=== PATIENT | female | born 1970 | race Two or more races ===

== ENCOUNTER 2016-08-10 10:39 | Emergency (ER) | payer MEDICAID ==
[2016-08-10 10:58] VITALS: RESP 18; TEMP 98
[2016-08-10] MEDS ORDERED: METOCLOPRAMIDE 10 MG/2 ML VIAL IVP ONE (11:04)
[2016-08-10] MEDS ORDERED: HYDROmorphONE/DILAUDID 1 MG/ML SYR IVP ONE (11:04)
[2016-08-10] MEDS ORDERED: KETOROLAC 30 MG/1 ML SDV IVP ONE (11:04)
[2016-08-10] MEDS ORDERED: NS 1,000 ML IV ONE (11:04)
[2016-08-10] MEDS ORDERED: DEXAMETHASONE 10 MG/ML VIAL IVP ONE (11:04)
--- NOTE | 2016-08-10 11:07 | EDPHY ---
H & P Stated Complaint: c/o Migraine KELLY x 2 wks - yesterday Rt sided numness/pain down arm Time Seen by Provider: 08/10/16 10:56 HPI/ROS: CHIEF COMPLAINT: Headache HISTORY OF PRESENT ILLNESS: The patient is a 45-year-old female who comes to the emergency department complaining of headache that has been intermittent but constantly present for the last 2 weeks on the right side of her head. It is consistent with previous migraines she has had. She states that she is having some tingling to the right side of her face and thought that her eye may be swollen. I do not appreciate that. She has not had any trouble speaking. No vision changes. No hearing changes. Normal movement and sensation. No fever. No trauma. REVIEW OF SYSTEMS: Constitutional: denies: chills, fever, recent illness, recent injury EENTM: denies: blurred vision, double vision, nose congestion Respiratory: denies: cough, shortness of breath Cardiac: denies: chest pain, irregular heart rate, lightheadedness, palpitations Gastrointestinal/Abdominal: denies: abdominal pain, diarrhea, nausea, vomiting, blood streaked stools Genitourinary: denies: dysuria, frequency, hematuria, pain Musculoskeletal: denies: joint pain, muscle pain Skin: denies: lesions, rash, jaundice, bruising Neurological: See HPI Hematologic/Lymphatic: denies: blood clots, easy bleeding, easy bruising Immunologic/allergic: denies: HIV/AIDS, transplant EXAM: GENERAL: Well-appearing, well-nourished and in no acute distress. HEAD: Atraumatic, normocephalic. EYES: Pupils equal round and reactive to light, extraocular movements intact, sclera anicteric, conjunctiva are normal. No Visible swelling or edema ENT: TMs normal, nares patent, oropharynx clear without exudates. Moist mucous membranes. NECK: Normal range of motion, supple without lymphadenopathy or JVD. LUNGS: Breath sounds clear to auscultation bilaterally and equal. No wheezes rales or rhonchi. HEART: Regular rate and rhythm without murmurs, rubs or gallops. ABDOMEN: Soft, nontender, normoactive bowel sounds. No guarding, no rebound. No masses appreciated. BACK: No CVA tenderness, no spinal tenderness, step-offs or deformities EXTREMITIES: Normal range of motion, no pitting or edema. No clubbing or cyanosis. NEUROLOGICAL: Cranial nerves II through XII grossly intact. Normal speech, normal gait. 5/5 strength, normal movement in all extremities, normal sensation , NIH stroke score 0. PSYCH: Normal mood, normal affect. SKIN: Warm, dry, normal turgor, no visible rashes or lesions. Source: Patient Exam Limitations: No limitations - Personal History LMP (Females 10-55): 8-14 Days Ago Tetanus Vaccine Date: 2009 - Medical/Surgical History Hx Asthma: Yes Hx Chronic Respiratory Disease: No Hx Diabetes: No Hx Cardiac Disease: No Hx Renal Disease: No Hx Cirrhosis: No Hx Alcoholism: No Hx HIV/AIDS: No Hx Splenectomy or Spleen Trauma: No Other PMH: GALLBLADDER REMOVAL// arthritis, takes vicodin and "another med". TUBAL LIGATION. Hypothyroid. asthma/ migraines - Family History Significant Family History: No pertinent family hx - Social History Smoking Status: Never smoked Alcohol Use: Sober Drug Use: None Constitutional: Initial Vital Signs Temperature (C) 36.6 C 08/10/16 10:56 Heart Rate 81 08/10/16 10:56 Respiratory Rate 18 08/10/16 10:56 Blood Pressure 158/87 H 08/10/16 10:56 O2 Sat (%) 96 08/10/16 10:56 O2 Delivery Mode Room Air O2 (L/minute) 2 Allergies/Adverse Reactions: No Known Allergies Allergy (Unverified 08/10/16 11:35) Home Medications: Medication Instructions Recorded Levothyroxine Sodium 150 mcg PO DAILY 02/06/09 Albuterol [Proventil 2 mg (*)] 12/20/15 Naproxen Sodium [Aleve] 12/20/15 Metoclopramide [Reglan 10 mg tab 10 mg PO BID PRN #10 tab 08/10/16 (RX)] Medical Decision Making ED Course/Re-evaluation: The patient has been prescribed Maxalt before but she states that she never filled her prescription. Will treat her with migraine medication. She does not have any focal neurologic deficits. No fever. No high risk symptoms. 12:15 p.m. the patient feels completely better. She remains completely neurologically intact. We discussed follow-up with Neurology. I will prescribe her some Reglan if her symptoms return. She understands and agrees with this plan. Differential Diagnosis: Partial list of the Differential diagnosis considered include but were not limited to; migraine, tension headache and although unlikely based on the history and physical exam, I also considered , Vasquez's palsy, radiculopathy, Tic Delarux, tumor, CVA, thrombosis, dissection. I discussed these differential diagnoses and the plan with the patient as well as the usual and expected course. The patient understands that the diagnosis is provisional and that in medicine we are not always correct and that further workup is often warranted. Usual and customary warnings were given. All of the patient's questions were answered. The patient was instructed to return to the emergency department should the symptoms at all worsen or return, otherwise to followup with the physician as we discussed. - Data Points Medications Given: Discontinued Medications Dexamethasone (Decadron Injection) 10 mg IVP EDNOW ONE Stop: 08/10/16 11:05 Last Admin: 08/10/16 11:20 Dose: 10 mg Hydromorphone HCl (Dilaudid) 1 mg IVP EDNOW ONE Stop: 08/10/16 11:05 Last Admin: 08/10/16 11:25 Dose: 1 mg Sodium Chloride (Ns) 1,000 mls @ 0 mls/hr IV ONCE ONE PRN Reason: Wide Open Stop: 08/10/16 11:05 Last Admin: 08/10/16 11:09 Dose: 1,000 mls Ketorolac Tromethamine (Toradol) 30 mg IVP EDNOW ONE Stop: 08/10/16 11:05 Last Admin: 08/10/16 11:18 Dose: 30 mg Metoclopramide HCl (Reglan Injection) 10 mg IVP EDNOW ONE Stop: 08/10/16 11:05 Last Admin: 08/10/16 11:22 Dose: 10 mg Departure - Departure Disposition: Home, Routine, Self-Care Clinical Impression: Migraine headache Qualifiers: Migraine type: unspecified Status migrainosus presence: without status migrainosus Intractability: not intractable Qualified Code(s): G43.909 - Migraine, unspecified, not intractable, without status migrainosus Condition: Fair Instructions: Migraine Headache (ED) Referrals: RAMA CHAN,Kris [Primary Care Provider] - As per Instructions Cam Viveros DO [Medical Doctor] - As per Instructions Prescriptions: Metoclopramide [Reglan 10 mg tab (RX)] 10 mg PO BID PRN #10 tab PRN Reason: Headache
[2016-08-10 15:55] VITALS: BP 145/87; PULSE 72; O2SAT 97
== END 2016-08-10 13:43 | disposition home or self-care (01) ==
LOC: CED 10:39
DX: G43.909 Migraine, unspecified, not intractable, without status migrainosus (principal); J45.909 Unspecified asthma, uncomplicated
CPT/HCPCS: J1170; J1885; J2765

== ENCOUNTER 2017-03-12 12:33 | Emergency (ER) | payer MEDICAID ==
[2017-03-12 12:47] VITALS: RESP 16; TEMP 98.2; O2SAT 96
[2017-03-12] MEDS ORDERED: ACETAMINOPHEN 325 MG TAB PO ONE (13:11)
--- NOTE | 2017-03-12 13:15 | EDPHY ---
H & P Time Seen by Provider: 03/12/17 13:03 HPI/ROS: This patient awakened this morning with coryza myalgias and a mild sore throat this morning. Since this morning her sore throat is resolved with the myalgias and coryza persist. She clarifies that she actually had rhinorrhea yesterday as well. She took 1 Vicodin 90 min prior to arrival with 325 mg of Tylenol in it with mild relief and reports no other exacerbating factors. She has associated headache that is generalized similar to previous headaches. She states headache is moderate intensity. ROS: She has had chills. No other constitutional symptoms. HEENT: No sinus pain. No ear pain. Pulmonary: No coughing. Cardiovascular: No complaints GI: No nausea vomiting or diarrhea. No abdominal pain. : No urinary symptoms Integumentary: No skin rash Musculoskeletal: She reports mild neck pain month out from uncomplicated cervical fusion surgery. 10 point ROS is otherwise negative. Past Medical/Surgical History: Asthma Cervical fusion Hypothyroidism Smoking Status: Never smoked Physical Exam: General Appearance: Alert, no distress. Eyes: Pupils equal and round no pallor or injection. ENT, Mouth: Mucous membranes moist. Nose: Clear discharge bilaterally. Ears: Clear bilaterally Respiratory: There are no retractions, lungs are clear to auscultation. Cardiovascular: Regular rate and rhythm. No murmur gallop rub pain Gastrointestinal: Abdomen is soft and nontender, no masses, bowel sounds normal. Neurological: GCS 15. Skin: Warm and dry, no rashes. Anterior cervical surgical scar is clean dry intact. No tenderness Musculoskeletal: Neck is supple nontender. Extremities are symmetrical, full range of motion. Psychiatric: Mood and affect normal. DIFFERENTIAL DIAGNOSIS: After history and physical exam differential diagnosis was considered for viral URI, influenza, fibromyalgia Constitutional: Initial Vital Signs Temperature (C) 36.8 C 03/12/17 12:42 Heart Rate 91 03/12/17 12:42 Respiratory Rate 16 03/12/17 12:42 Blood Pressure 141/100 H 03/12/17 12:42 O2 Sat (%) 96 03/12/17 12:42 O2 Delivery Mode Room Air Allergies/Adverse Reactions: ibuprofen Allergy (Severe, Verified 03/12/17 12:40) lips swell Home Medications: Medication Instructions Recorded Levothyroxine Sodium 150 mcg PO DAILY 02/06/09 Albuterol [Proventil 2 mg (*)] 12/20/15 Naproxen Sodium [Aleve] 12/20/15 Hydrocodone-Acetamin 5-325 mg 03/12/17 MDM/Departure - MDM Diagnostics: Rapid influenza swab is negative. ED Course/Re-evaluation: Discussion: Clinically this patient has a viral URI with clear coryza. I think that her myalgias attributable to this and her fibromyalgia. She otherwise appears well without evidence of wound infection or other concerning findings at this time. She also has currently has no evidence of asthma exacerbation. Her influenza test is negative. Counseled regarding viral URI. - Depart Disposition: Home, Routine, Self-Care Clinical Impression: Viral URI, Myalgia Condition: Good Instructions: [facility] Patient Education, Infection Prevention, Upper Respiratory Infection (ED) Additional Instructions: Diagnosis: 1. Viral URI 2. Myalgias Plan: Continue Tylenol and/or your hydrocodone/Tylenol as needed for symptoms Symptoms should gradually improve over the next 3-7 days Drink plenty fluids Follow-up with primary care physician for any ongoing symptoms despite treatment plan. Return for any significant worsening despite treatment plan.
[2017-03-12 13:46] VITALS: BP 139/80; PULSE 94
== END 2017-03-12 13:44 | disposition home or self-care (01) ==
LOC: CED 12:33
DX: M79.1 Myalgia (principal); J06.9 Acute upper respiratory infection, unspecified; J45.909 Unspecified asthma, uncomplicated
CPT/HCPCS: 87400-PO

== ENCOUNTER 2018-06-24 11:46 | Emergency (ER) | payer MEDICAID ==
--- NOTE | 2018-06-24 12:28 | EDPHY ---
H & P Stated Complaint: yesterday states feeling wierd after cleaning AC unit.KELLY Time Seen by Provider: 06/24/18 11:51 HPI/ROS: Chief Complaint: Headache, lightheaded, malaise HPI: 39-year-old woman with a history of chronic migraine headaches, fibromyalgia. Patient has migraine headaches every day. She has seen a neurologist. Patient states that today she has her typical headache but is feeling somewhat lightheaded and "weird". Patient states her symptoms began yesterday after she was cleaning her air conditioning unit. One of the coils burst and wheat cool went into the air. She breathes some of this in. This occurred yesterday afternoon. After that she has been complaining of feeling lightheaded. No shortness of breath. No chest pain. No fainting. No nausea or vomiting. Symptoms are improved today but still little bit present. No cough. ROS: 10 systems were reviewed and were negative except those elements noted in the HPI. PMH: Migraine headaches, fibromyalgia, arthritis, chronic pain Social History: No smoking, no alcohol, no recreational drug use Family History: non-contributory Physical Exam: Gen: Awake, Alert, No Distress HEENT: Nose: no rhinorrhea Eyes: PERRLA, EOMI Mouth: Moist mucosa Neck: Supple, no JVD Chest: nontender, lungs clear to auscultation Heart: S1, S2 normal, no murmur Abd: Soft, non-tender, no guarding Back: no CVA tenderness, no midline tenderness Ext: no edema, non-tender Skin: no rash Neuro: CN II-XII intact, Sensation grossly intact, Strength 5/5 in bilateral upper and lower extremities - Personal History LMP (Females 10-55): Now Current Tetanus Diphtheria and Acellular Pertussis (TDAP): Yes Tetanus Vaccine Date: 2017 - Medical/Surgical History Hx Asthma: Yes Hx Chronic Respiratory Disease: No Hx Diabetes: No Hx Cardiac Disease: No Hx Renal Disease: No Hx Cirrhosis: No Hx Alcoholism: No Hx HIV/AIDS: No Hx Splenectomy or Spleen Trauma: No Other PMH: yajaira// arthritis, takes vicodin and "another med". TUBAL LIGATION, neck [id number]. Hypothyroid,fibromyalgia. asthma/ migraines - Social History Smoking Status: Never smoked Constitutional: Initial Vital Signs Temperature (C) 36.6 C 06/24/18 11:53 Heart Rate 75 06/24/18 11:53 Respiratory Rate 16 06/24/18 11:53 Blood Pressure 152/100 H 06/24/18 11:53 O2 Sat (%) 95 06/24/18 11:53 O2 Delivery Mode Room Air Allergies/Adverse Reactions: ibuprofen Allergy (Severe, Verified 06/24/18 11:58) lips swell Home Medications: Medication Instructions Recorded Levothyroxine Sodium 150 mcg PO DAILY 02/06/09 Albuterol Sulfate [Proair Hfa] PRN 06/24/18 Medical Decision Making ED Course/Re-evaluation: 39-year-old woman with general malaise and mild headache after a conditioning: Exposure yesterday. She has an absolutely no respiratory distress. Oxygen saturations are excellent. She is not tachypneic. She is hypertensive but otherwise vital signs are normal. She has no neurologic symptoms. She does have her typical daily migraine headache but this is unchanged. She has been reassured. No evidence of significant toxicity at this time. Plan will be for discharge. Follow up with primary care physician in 2-3 days if symptoms are not improving. Departure - Departure Disposition: Home, Routine, Self-Care Clinical Impression: Lightheaded Condition: Good Instructions: Lightheadedness (ED) Additional Instructions: Follow up with primary care physician in 2-3 days if symptoms are not improving. Return to the emergency department for fainting, worsening headache, uncontrolled nausea vomiting, difficulty breathing, or any other concerns. Referrals: JAMAROCIO [Other] - As per Instructions
[2018-06-24 13:11] VITALS: BP 147/97
== END 2018-06-24 12:55 | disposition home or self-care (01) ==
LOC: CED 11:46
DX: R42 Dizziness and giddiness (principal); R51 Headache; R53.81 Other malaise
CPT/HCPCS: 99282-ER